=== PATIENT | male | born 1980 | race Caucasian/White ===

== ENCOUNTER 2016-04-07 23:21 | Emergency (ER) | payer MEDICAID ==
[~2016-04-07] VITALS: Ht 170.2 cm; Wt 95.3 kg
[2016-04-08] MEDS ORDERED: NAPROXEN 500 MG TAB PO ONE (01:30)
[2016-04-08 01:43] VITALS: BP 134/78
== END 2016-04-08 02:27 | disposition home or self-care (01) ==
LOC: ER 23:26
DX: M79.1 Myalgia (principal); M54.16 Radiculopathy, lumbar region; Z88.0 Allergy status to penicillin; M26.220 Open anterior occlusal relationship
CPT/HCPCS: 72100